=== PATIENT | female | born 1960 | race Two or more races ===

== ENCOUNTER → 2017-05-14 | Outpatient (CLI) | payer SELFPAY ==
[2017-05-14 11:23] LABS: ALBUMIN SERUM 3.8 g/dL (3.5-5.0); BILIRUBIN,TOTAL 0.6 mg/dL (0.2-2.0); BUN/CREATININE RATIO 11.66; CALCIUM SERUM 9.7 mg/dL (8.4-10.2); CREATININE SERUM 0.6 mg/dL (0.6-1.4); GLOM FILT RATE Estimated 102.6 mL/min (>60); MAGNESIUM 1.5 mg/dL (1.6-3.0); POTASSIUM 5.2 mmol/L (3.5-5.1); PROTEIN TOTAL SERUM 6.9 g/dL (6.0-8.3)
== END | disposition home or self-care (01) ==
LOC: CLAB 09:51
DX: Z00.00 Encounter for general adult medical examination without abnormal findings (principal); I25.10 Atherosclerotic heart disease of native coronary artery without angina pectoris; I10 Essential (primary) hypertension; R09.89 Other specified symptoms and signs involving the circulatory and respiratory systems
CPT/HCPCS: 36415; 80053; 80061; 83735